=== PATIENT | male | born 1990 | race Caucasian/White ===

== ENCOUNTER → 2018-05-02 | Outpatient (CLI) | payer BC ==
[~2018-05-02] MED LIST: IBUP200T64 PO
== END | disposition home or self-care (01) ==
LOC: STAR 13:32
PROVIDERS: ATTEND Orthopaedic Surgery
DX: Z02.9 Encounter for administrative examinations, unspecified (principal)

== ENCOUNTER 2018-05-07 12:05 | Day surgery (SDC) | payer BC ==
[2018-05-02 14:27] VITALS: BP 118/88
[~2018-05-07] VITALS: Ht 182.9 cm; Wt 96.7 kg
[2018-05-07] MEDS ORDERED: GABAPENTIN 300 MG CAPSULE PO ONE (13:00)
[2018-05-07] MEDS ORDERED: LACTATED RINGERS 1,000 ML IV SCH (13:00)
[2018-05-07] MEDS ORDERED: ACETAMINOPHEN 500 MG TABLET PO ONE (13:00)
[2018-05-07] MEDS ORDERED: MIDAZOLAM 1 MG/ML, 2ML ONE (13:06)
[2018-05-07] MEDS ORDERED: FENTANYL PF 250 MCG/5ML ONE (13:06)
[2018-05-07] MEDS ORDERED: NEOSTIGMINE 1 MG/ML, 10ML ONE (13:10)
[2018-05-07] MEDS ORDERED: ROPIvacaine/PF 0.5%, 30 ML ONE ×2 (13:10→13:57)
[2018-05-07] MEDS ORDERED: GLYCOPYRROLATE 0.2MG/1ML, 5ML ONE (13:10)
[2018-05-07] MEDS ORDERED: ROCURONIUM 10MG/ML,5ML ONE (13:10)
[2018-05-07] MEDS ORDERED: PROPOFOL 10 MG/ML, 20ML ONE (13:10)
[2018-05-07] MEDS ORDERED: CEFAZOLIN 1,000 MG ONE (13:10)
[2018-05-07] MEDS ORDERED: LIDOCAINE 1%-EPI 1:100K, 30ML ONE (13:57)
[2018-05-07] MEDS ORDERED: ONDANSETRON ODT 8 MG PO PRN (14:30)
[2018-05-07] MEDS ORDERED: OXYcodone 5 MG/5 ML ORAL.SOL UDC PO PRN (14:30)
[2018-05-07] MEDS ORDERED: MORPHINE SULFATE 4 MG/ML, 1ML IVPush PRN (14:30)
[2018-05-07] MEDS ORDERED: FENTANYL PF 100 MCG/2ML IV PRN (14:30)
[2018-05-07] MEDS ORDERED: HYDROmorphone 2 MG/ML, 1ML IVPush PRN (14:30)
[2018-05-07] MEDS ORDERED: hydrALAzine 20 MG/ML, 1ML IV PRN (14:30)
[2018-05-07] MEDS ORDERED: PROMETHAZINE 12.5 MG SUPP PR PRN (14:30)
[2018-05-07] MEDS ORDERED: MEPERIDINE/PF 25MG/0.5ML IVPush PRN (14:30)
[2018-05-07] MEDS ORDERED: PROMETHAZINE 25 MG/ML, 1ML IV PRN (14:30)
[2018-05-07] MEDS ORDERED: HALOPERIDOL 5 MG/ML IV PRN (14:30)
[2018-05-07] MEDS ORDERED: PROMETHAZINE 25 MG/ML, 1ML IM PRN ×2 (14:30)
[2018-05-07] MEDS ORDERED: PROMETHAZINE 25 MG SUPP PR PRN (14:30)
[2018-05-07] MEDS ORDERED: ONDANSETRON 2MG/ML, 2ML IV PRN (14:30)
[2018-05-07] MEDS ORDERED: LABETALOL 5MG/ML, 20ML IV PRN (14:30)
[2018-05-07] MEDS ORDERED: MEPERIDINE/PF 50 MG/ML ONE (16:19)
== END 2018-05-07 18:00 | disposition home or self-care (01) ==
LOC: OUT 12:05
PROVIDERS: ATTEND Orthopaedic Surgery
DX: S83.242A Other tear of medial meniscus, current injury, left knee, initial encounter (principal); S83.512A Sprain of anterior cruciate ligament of left knee, initial encounter; M65.862 Other synovitis and tenosynovitis, left lower leg; W10.8XXA Fall (on) (from) other stairs and steps, initial encounter; Y93.89 Activity, other specified; Y92.89 Other specified places as the place of occurrence of the external cause; Y99.8 Other external cause status; Z98.890 Other specified postprocedural states; Z79.899 Other long term (current) drug therapy
CPT/HCPCS: 29881; 29888; 64447; 73560; 76000; C1713; J0690; J2175; J2250; J2704; J2710; J2795; J3010; J3490; J7120

== ENCOUNTER 2018-12-23 02:10 | Day surgery (SDC) | payer BC ==
[~2018-12-23] VITALS: Ht 182.9 cm; Wt 102.6 kg
[2018-12-23 08:10] VITALS: BP 115/67
== END 2018-12-23 15:40 | disposition home or self-care (01) ==
LOC: SDC 05:51 → ED 05:51 → UNDOADMIN 06:33 → EDIP 06:33 → UNDODISIN 15:40 → SDC 15:40 → EDSTATUS 17:29
PROVIDERS: ATTEND Student in an Organized Health Care Education/Training Program
DX: K35.30 Acute appendicitis with localized peritonitis, without perforation or gangrene (principal); Z79.899 Other long term (current) drug therapy
CPT/HCPCS: 36415; 44970; 74177; 76700; 80053; 81003; 83690; 85025; 88304; 93005; J0330; J1170; J1885; J2250; J2270; J2405; J2550; J2704; J2710; J3010; J3490; J7030; Q9967

== ENCOUNTER 2019-01-09 17:00 | Emergency (ER) | payer BC ==
[~2019-01-09] VITALS: Ht 182.9 cm; Wt 101.3 kg
[2019-01-09 19:47] VITALS: BP 117/73
== END 2019-01-09 20:02 | disposition home or self-care (01) ==
LOC: ED 19:45
DX: L03.311 Cellulitis of abdominal wall (principal); L76.34 Postprocedural seroma of skin and subcutaneous tissue following other procedure; Z90.89 Acquired absence of other organs
CPT/HCPCS: 36415; 74177; 80048; 80076; 83690; 85025; 99284; Q9967

== ENCOUNTER 2019-11-06 11:09 | Emergency (ER) | payer BC ==
[~2019-11-06] VITALS: Ht 182.9 cm; Wt 96.4 kg
[~2019-11-06 11:09] MED LIST changes: +ANTIBIOTIC
--- NOTE | 2019-11-06 12:09 | NUR ---
PROFESSIONAL APPLICATION DESIGNER: PT TO ROOM FROM CARMEL[facility] RUDD.
[2019-11-06] MEDS ORDERED: ONDANSETRON ODT 4 MG ONE (12:15)
[2019-11-06] MEDS ORDERED: HYDROcodone/APAP 5/325 TABLET ONE (12:15)
[2019-11-06] MEDS ORDERED: ONDANSETRON ODT 4 MG PO ONE (12:30)
[2019-11-06] MEDS ORDERED: HYDROcodone/APAP 5/325 TABLET PO ONE (12:30)
[2019-11-06 12:44] LABS: BASOPHILS # (AUTO) 0.02 x10^3/uL (0-0.1); BASOPHILS % (AUTO) 1 % (0-1); EOSINOPHILS # (AUTO) 0.09 x10^3/uL (0-0.4); EOSINOPHILS % (AUTO) 2 % (1-7); LYMPHOCYTES # (AUTO) 1.31 x10^3/uL (1-3.4); LYMPHOCYTES % (AUTO) 27 % (22-44); MD NO; MEAN CORPUSCULAR HEMOGLOBIN 30.4 pg (27.5-34.5); MEAN CORPUSCULAR HGB CONC 34.7 g/dL (33.2-36.2); MEAN CORPUSCULAR VOLUME 87.7 fL (81-97); MEAN PLATELET VOLUME 6.9 fL (7.4-10.4); MONOCYTES % (AUTO) 12 % (2-9); NEUTROPHILS % (AUTO) 58 % (42-75); PLATELET COUNT 238 x10^3/uL (130-400); RED BLOOD COUNT 5.35 x10^6/uL (4.38-5.82); RED CELL DISTRIBUTION WIDTH 14.2 % (9.4-14.8)
[2019-11-06 12:51] LABS: ALBUMIN 3.9 g/dL (3.4-5.0); CALCIUM 8.3 mg/dL (8.5-10.1); CHLORIDE 111 mmol/L (98-107)
[2019-11-06 12:55] LABS: ANION GAP 5 mmol/L (5-15); CREATININE 0.91 mg/dL (0.7-1.3)
[2019-11-06 14:05] VITALS: BP 110/72
--- NOTE | 2019-11-06 14:05 | NUR ---
PT UPRIGHT ON GURNEY AWAKE & MORE COMFORTABLE AFTER PAIN MED ESPECIALLY AT REST, RESPONDS APPROP TO STAFF, COMFORT MEASURES PROVIDED, SO AT BS, CALL LIGHT WITHIN REACH.
--- NOTE | 2019-11-06 14:50 | NUR ---
Patient given discharge instructions and they have confirmed that they understand the instructions. Patient ambulatory with steady gait.
== END 2019-11-06 14:51 | disposition home or self-care (01) ==
LOC: ED 13:10
DX: N20.1 Calculus of ureter (principal); R31.9 Hematuria, unspecified; R10.9 Unspecified abdominal pain; Z90.89 Acquired absence of other organs
CPT/HCPCS: 36415; 74176; 80048; 82040; 85025; 99284; Q0162

== ENCOUNTER 2020-01-05 11:07 | Emergency (ER) | payer BC ==
[~2020-01-05] VITALS: Ht 182.9 cm; Wt 92.3 kg
--- NOTE | 2020-01-05 11:24 | NUR ---
FIRST CONTACT WITH PT. PT WAS PLAYING HOCKEY LAST NIGHT AND FELL AND "KNEED MYSELF IN THE RIBS". PT STATES IT HURTS TO BREATH. DENIES LOC. PT'S AOX4. RESPS EVEN AND UNLABORED.
[2020-01-05] MEDS ORDERED: KETOROLAC 30 MG/1 ML ONE (11:27)
[2020-01-05] MEDS ORDERED: KETOROLAC 30 MG/1 ML IM ONE (11:30)
--- NOTE | 2020-01-05 11:32 | NUR ---
PT MEDICATED PER EMAR. PT TOLERATED WELL.
--- NOTE | 2020-01-05 11:34 | NUR ---
PT AMB TO XRAY WITH STEADY GAIT.
[2020-01-05 12:06] VITALS: BP 100/61
--- NOTE | 2020-01-05 12:07 | NUR ---
TASK RN: PT REPORTS PAIN RELIEF AFTER TORADOL 4/10 ON PAIN SCALE. VSS. CALL LIGHT WITHIN REACH.
== END 2020-01-05 12:26 | disposition home or self-care (01) ==
LOC: ED 12:18
DX: S20.211A Contusion of right front wall of thorax, initial encounter (principal); G89.11 Acute pain due to trauma; W18.39XA Other fall on same level, initial encounter; Y93.22 Activity, ice hockey; Y92.488 Other paved roadways as the place of occurrence of the external cause; Y99.8 Other external cause status
CPT/HCPCS: 71101; 96372; 99283; J1885

== ENCOUNTER 2020-04-01 09:54 | Emergency (ER) | payer BC ==
[~2020-04-01] VITALS: Ht 182.9 cm; Wt 94.6 kg
--- NOTE | 2020-04-01 10:35 | NUR ---
PT BIB POV. PER PT HE HAS BEEN HAVING NECK AND BACK PAIN SINCE LAST NIGHT. PT REPORTS IT FEELS LIKE THE MUSCLES ARE "THROBBING". PER PT HE HAS CHRONIC BACK PAIN. PT DENIES TRAUMA TO NECK/BACK AND DENIES ANY FALLS. PT RESTING IN [facility], NO OTHER COMPLAINTS.
[2020-04-01] MEDS ORDERED: KETOROLAC 30 MG/1 ML ONE (10:42)
[2020-04-01] MEDS ORDERED: METHOCARBAMOL 750 MG TABLET ONE (10:42)
[2020-04-01] MEDS ORDERED: KETOROLAC 30 MG/1 ML IM ONE (11:00)
[2020-04-01] MEDS ORDERED: METHOCARBAMOL 750 MG TABLET PO ONE (11:00)
[2020-04-01 12:29] VITALS: BP 130/86
== END 2020-04-01 12:31 | disposition home or self-care (01) ==
LOC: ED 12:10
DX: S29.012A Strain of muscle and tendon of back wall of thorax, initial encounter (principal); M54.2 Cervicalgia; M54.5 Low back pain; X58.XXXA Exposure to other specified factors, initial encounter; Y93.89 Activity, other specified; Y92.89 Other specified places as the place of occurrence of the external cause; Y99.8 Other external cause status
CPT/HCPCS: 96372; 99283; J1885

== ENCOUNTER 2020-08-25 09:52 | Emergency (ER) | payer BC ==
[~2020-08-25] VITALS: Ht 182.9 cm; Wt 100.0 kg
--- NOTE | 2020-08-25 10:12 | NUR ---
"Sunday am woke with STEVENSON and fever, i've been working a lot. Since then STEVENSON is worse and developed fever." Negative covid 08/24.
[2020-08-25] MEDS ORDERED: DIPHENHYDRAMINE 50 MG/ML, 1ML ONE (10:53)
[2020-08-25] MEDS ORDERED: DEXAMETHASONE 4 MG/ML, 1ML ONE (10:53)
[2020-08-25] MEDS ORDERED: METOCLOPRAMIDE 5 MG/ML, 2ML ONE (10:53)
[2020-08-25] MEDS ORDERED: KETOROLAC 30 MG/1 ML ONE (10:54)
[2020-08-25] MEDS ORDERED: KETOROLAC 30 MG/1 ML IVPush ONE (11:00)
[2020-08-25] MEDS ORDERED: DIPHENHYDRAMINE 50 MG/ML, 1ML IVPush ONE (11:00)
[2020-08-25] MEDS ORDERED: METOCLOPRAMIDE 5 MG/ML, 2ML IVPush ONE (11:00)
[2020-08-25] MEDS ORDERED: DEXAMETHASONE 4 MG/ML, 1ML IVPush ONE (11:00)
[2020-08-25 11:07] LABS: BASOPHILS % (AUTO) 1 % (0-1); EOSINOPHILS % (AUTO) 3 % (1-7); LYMPHOCYTES % (AUTO) 28 % (22-44); MEAN CORPUSCULAR HEMOGLOBIN 30.5 pg (27.5-34.5); MEAN CORPUSCULAR HGB CONC 35.2 g/dL (33.2-36.2); MEAN PLATELET VOLUME 6.8 fL (7.4-10.4); MONOCYTES % (AUTO) 11 % (2-9); NEUTROPHILS % (AUTO) 57 % (42-75); PLATELET COUNT 211 x10^3/uL (130-400); RED BLOOD COUNT 5.72 x10^6/uL (4.38-5.82); RED CELL DISTRIBUTION WIDTH 13.2 % (9.4-14.8)
[2020-08-25 11:08] LABS: MD NO
[2020-08-25 11:09] LABS: CALCIUM 8.5 mg/dL (8.5-10.1)
[2020-08-25 11:16] LABS: ALANINE AMINOTRANSFERASE 17 U/L (12-78); ALKALINE PHOSPHATASE 71 U/L (45-117); BILIRUBIN,TOTAL 1.2 mg/dL (0.2-1.0); CREATININE 1.13 mg/dL (0.7-1.3); TOTAL PROTEIN 7.2 g/dL (6.4-8.2)
[2020-08-25 11:17] LABS: ANION GAP 2 mmol/L (5-15); CHLORIDE 106 mmol/L (98-107)
--- NOTE | 2020-08-25 11:23 | NUR ---
PT RESTING IN BED, VSS, NADN, MEDICATED PER EMAR
[2020-08-25] MEDS ORDERED: SODIUM CHLORIDE FLUSH 10ML SYR IVF ONE (11:30)
[2020-08-25 11:55] LABS: RAPID INFLUENZA A Negative (Negative); RAPID INFLUENZA B Negative (Negative)
--- NOTE | 2020-08-25 12:16 | NUR ---
Preceptor RN: Pt states "that medicine didn't help my headache at all."
[2020-08-25] MEDS ORDERED: HYDROcodone/APAP 10/325 MG TABLET PO ONE (13:00)
[2020-08-25] MEDS ORDERED: HYDROcodone/APAP 10/325 MG TABLET ONE (13:10)
[2020-08-25 13:14] VITALS: BP 129/76
--- NOTE | 2020-08-25 13:15 | NUR ---
Preceptor RN: Pt returned from CT, connected to O2 and BP monitors. Medicated for STEVENSON. Lights off in room. S/O at bedside.
--- NOTE | 2020-08-25 13:23 | NUR ---
Pt reports the light bothers his STEVENSON. Pt given cool, wet washclothes over eyes to help block light and bring down his temp.
--- NOTE | 2020-08-25 13:42 | NUR ---
Reported photophobia and stiff neck to Provider. No new orders.
== END 2020-08-25 14:08 | disposition home or self-care (01) ==
LOC: ED 11:29
DX: B34.9 Viral infection, unspecified (principal); R11.0 Nausea; R50.9 Fever, unspecified; R19.7 Diarrhea, unspecified; R51.9 Headache, unspecified; M54.5 Low back pain; M79.10 Myalgia, unspecified site
CPT/HCPCS: 36415; 70450; 80053; 82728; 83615; 85025; 87400; 96374; 96375; 99284; J1100; J1200; J1885; J2765